=== PATIENT | female | born 1955 | race Caucasian/White ===

== ENCOUNTER 2020-02-06 07:21 | Inpatient (IN) | payer OTHER, MEDICAID ==
[~2020-02-06] VITALS: Ht 160 cm; Wt 94.5 kg
[2020-02-06] MEDS ORDERED: ESTR2TAB4 PO (07:39)
[2020-02-06] MEDS ORDERED: PHEN15TA PO (07:39)
[2020-02-06] MEDS ORDERED: ATOR10TA9 PO (07:39)
[2020-02-06] MEDS ORDERED: METO25TA35 PO (07:39)
[2020-02-06] MEDS ORDERED: ALBU0.63 NEB (07:39)
--- NOTE | 2020-02-06 08:00 | NUR ---
TRANSFERRED FROM GLEN AFTER DECREASED URINE/BLOOD IN URINE, RIGHT SIDE FLANK PAIN STARTIGN AT 0100 TODAY. PT IN BED WITH CONT SPO2, BPQ 30 MIN, SIDE RAILS UP X2, CALL LIGHT IN REACH. WENT OVER PLAN OF CARE FROM ORDER LIST, AGREES TO PLAN OF CARE.
[2020-02-06] MEDS ORDERED: METOPROLOL TARTRATE 25 MG TAB ONE (08:25)
--- NOTE | 2020-02-06 08:32 | NUR ---
PT SLEEPING, RR EVEN AND UNLABORED. PHARMACY-NURSING COMMUNICATION FORM SENT FOR PO MEDS
[2020-02-06] MEDS ORDERED: EPHEDRINE 50 MG/ML, 1ML ONE (08:37)
[2020-02-06] MEDS: ESTRADIOL 2 MG TABLET PO SCH (09:00)
[2020-02-06 09:25] VITALS: BP 147/82
[2020-02-06] MEDS ORDERED: ONDANSETRON ODT 4 MG PO PRN (09:30)
[2020-02-06] MEDS: TAMSULOSIN 0.4 MG CAP.ER.24H PO SCH (09:30)
[2020-02-06] MEDS ORDERED: METOCLOPRAMIDE 5 MG/ML, 2ML IVPush PRN (09:30)
[2020-02-06] MEDS ORDERED: POLYETHYLENE GLYCOL 17 GM PACKET PO PRN (09:30)
[2020-02-06] MEDS ORDERED: LABETALOL 5MG/ML, 20ML IVPush PRN (09:30)
[2020-02-06] MEDS ORDERED: ACETAMINOPHEN 325 MG TABLET PO PRN (09:30)
[2020-02-06] MEDS ORDERED: HYDROmorphone 2 MG/ML, 1ML IVPush PRN (09:30)
[2020-02-06] MEDS ORDERED: KETOROLAC 30 MG/1 ML IV PRN (09:30)
[2020-02-06] MEDS ORDERED: MELATONIN 5 MG TABLET PO PRN (09:30)
[2020-02-06] MEDS ORDERED: BACLOFEN 10 MG TABLET PO PRN (11:00)
[2020-02-06] MEDS ORDERED: TRAZODONE 50MG TABLET PO PRN (11:00)
[2020-02-06] MEDS: METOPROLOL TARTRATE 25 MG TAB PO SCH (11:00)
[2020-02-06] MEDS: POTASSIUM CHLORIDE 20 MEQ in LACTATED RINGERS 1,000 ML IV SCH (12:00)
[2020-02-06 13:15] VITALS: BP 144/83
[2020-02-06] MEDS ORDERED: PROPOFOL 10 MG/ML, 20ML ONE (16:34)
[2020-02-06] MEDS ORDERED: FENTANYL PF 100 MCG/2ML ONE (16:34)
[2020-02-06] MEDS ORDERED: LIDOCAINE-MPF 2% ,5ML ONE (16:34)
[2020-02-06] MEDS ORDERED: DEXAMETHASONE 4 MG/ML, 1ML ONE ×2 (16:51)
[2020-02-06] MEDS ORDERED: ONDANSETRON 2MG/ML, 2ML IVPush PRN (17:00)
[2020-02-06] MEDS ORDERED: FENTANYL PF 100 MCG/2ML IV PRN (17:00)
[2020-02-06] MEDS ORDERED: ONDANSETRON 2MG/ML, 2ML ONE (17:19)
[2020-02-06 20:53] VITALS: BP 146/84
[2020-02-06] MEDS ORDERED: ATORVASTATIN 10 MG TABLET PO SCH (21:00)
[2020-02-07 00:30] VITALS: BP 116/67
[2020-02-07] MEDS: POTASSIUM CHLORIDE 20 MEQ in LACTATED RINGERS 1,000 ML IV SCH (01:10)
[2020-02-07 04:15] VITALS: BP 123/72
[2020-02-07 07:12] VITALS: BP 151/75
[2020-02-07] MEDS: TAMSULOSIN 0.4 MG CAP.ER.24H PO SCH (09:13)
[2020-02-07] MEDS: ESTRADIOL 2 MG TABLET PO SCH (09:14)
[2020-02-07] MEDS: METOPROLOL TARTRATE 25 MG TAB PO SCH (09:14)
[2020-02-07 09:19] VITALS: BP 141/90
[2020-02-07 09:37] LABS: BASOPHILS % (AUTO) 0 % (0-1); EOSINOPHILS % (AUTO) 0 % (1-7); LYMPHOCYTES % (AUTO) 11 % (22-44); MEAN CORPUSCULAR HEMOGLOBIN 29.6 pg (27.0-34.8); MEAN CORPUSCULAR HGB CONC 32.7 g/dL (32.4-35.8); MEAN PLATELET VOLUME 8.1 fL (7.4-10.4); MONOCYTES % (AUTO) 2 % (2-9); NEUTROPHILS % (AUTO) 87 % (42-75); PLATELET COUNT 261 x10^3/uL (130-400); RED BLOOD COUNT 4.38 x10^6/uL (3.82-5.3); RED CELL DISTRIBUTION WIDTH 14.2 % (9.6-15.2)
[2020-02-07 09:48] LABS: ALANINE AMINOTRANSFERASE 15 U/L (12-78); ALBUMIN 2.9 g/dL (3.4-5.0); ANION GAP 6 mmol/L (5-15); CALCIUM 9.4 mg/dL (8.5-10.1); CHLORIDE 109 mmol/L (98-107); CREATININE 0.73 mg/dL (0.55-1.02)
[2020-02-07 09:50] LABS: ALKALINE PHOSPHATASE 69 U/L (45-117); BILIRUBIN,TOTAL 0.3 mg/dL (0.2-1.0)
[2020-02-07 10:30] LABS: MD SCAN
[2020-02-07] MEDS ORDERED: SENNA/DOCUSATE TABLET PO SCH (11:00)
[2020-02-07 12:23] VITALS: BP 146/83
[2020-02-07] MEDS ORDERED: CEFD300C37 PO (13:04)
[2020-02-07] MEDS ORDERED: PHEN-418 PO (13:04)
== END 2020-02-07 15:10 | disposition home or self-care (01) | DRG 661 ==
LOC: ED 07:55 → EDIP 08:03 → SUATTDRO 08:09 → 3WST 09:55 → DCLOUNGE 02-07 14:57
PROVIDERS: ADMIT Internal Medicine; ATTEND Internal Medicine
PROC: 0TC68ZZ Extirpation of Matter from Right Ureter, Via Natural or Artificial Opening Endoscopic (ICD-10-PCS; 2020-02-06)
PROC: 0T768DZ Dilation of Right Ureter with Intraluminal Device, Via Natural or Artificial Opening Endoscopic (ICD-10-PCS; principal; 2020-02-06 16:00)
DX: N13.2 Hydronephrosis with renal and ureteral calculous obstruction (principal); E78.5 Hyperlipidemia, unspecified; F39 Unspecified mood [affective] disorder; I10 Essential (primary) hypertension; Z96.653 Presence of artificial knee joint, bilateral; Z20.828 Contact with and (suspected) exposure to other viral communicable diseases; Z86.73 Personal history of transient ischemic attack (TIA), and cerebral infarction without residual deficits; Z87.440 Personal history of urinary (tract) infections; Z87.891 Personal history of nicotine dependence; Z90.710 Acquired absence of both cervix and uterus; R31.9 Hematuria, unspecified
CPT/HCPCS: 36415; 74018; 76000; 99285; J3490; 80053; 82360; 85025; 87635; 88300; 93005; G0378; J1100; J2405; J2704; J3010; J3480; C1758; C2617; J7120